=== PATIENT | male | born 1950 | race African-American/Black ===

== ENCOUNTER 2016-11-25 07:42 | Day surgery (SDC) | payer BC ==
[2016-11-19 14:31] VITALS: BMI 37.3
[2016-11-25] MEDS ORDERED: PROPOFOL 20 ML ONE ×2 (07:46)
[2016-11-25 12:23] VITALS: BP 136/66; PULSE 79; TEMP 98.1
--- NOTE | 2016-11-26 12:56 | PATH ---
Surgical Pathology Report Patient Name: AMIRA JAMES [facility]. Rec. #: [id number] /Age/Gender: 1950 (Age: 65) / M Account: [id number] Location: [facility]-ENDOSCOPY Taken: 11/25/2016 Received: 11/25/2016 Reported: 11/26/2016 Physicians: Ronald Hernandez M.D. Specimen(s) Received BX SIGMOID Clinical History Polyp Final Diagnosis SIGMOID, BIOPSY: HYPERPLASTIC POLYP. Electronically Signed Capri Rivas M.D. Gross Description Received in formalin, labeled "sigmoid" is a briones, irregular portion of soft tissue measuring 0.3 cm. in greatest dimension. The specimen is submitted in toto in one cassette. /11/25/201611/25/2016
== END 2016-11-25 11:30 | disposition home or self-care (01) ==
LOC: FASU-ENDO 07:42
PROVIDERS: ATTEND Internal Medicine Gastroenterology
PROC: 0DBN8ZX Excision of Sigmoid Colon, Via Natural or Artificial Opening Endoscopic, Diagnostic (ICD-10-PCS; principal; 2016-11-25 09:41)
DX: Z86.010 Personal history of colon polyps (principal); K63.5 Polyp of colon; K57.30 Diverticulosis of large intestine without perforation or abscess without bleeding
CPT/HCPCS: 88305-TC

== ENCOUNTER 2022-08-12 08:03 | Day surgery (SDC) | payer BC ==
[2022-08-09 09:48] VITALS: BMI 34.9
[2022-08-12 09:14] VITALS: TEMP 97.4
[2022-08-12 09:23] VITALS: BP 126/74; PULSE 77; RESP 18
== END 2022-08-12 09:40 | disposition home or self-care (01) ==
LOC: FASU-ENDO 08:03
PROVIDERS: ATTEND Internal Medicine Gastroenterology
PROC: 0DJD8ZZ Inspection of Lower Intestinal Tract, Via Natural or Artificial Opening Endoscopic (ICD-10-PCS; principal; 2022-08-12 08:55)
DX: Z12.11 Encounter for screening for malignant neoplasm of colon (principal); Z86.010 Personal history of colon polyps